=== PATIENT | male | born 1950 | race Caucasian/White ===

== ENCOUNTER 2019-09-03 16:43 | Inpatient (IN) | payer OTHER, MEDICAID ==
[~2019-09-03] VITALS: Ht 170.2 cm; Wt 74.8 kg
[2019-09-03 16:45] VITALS: BP_SYST 131
--- NOTE | 2019-09-03 16:45 | NUR ---
Patient to ER H1 to gown for evaluation. Side rails up.
--- NOTE | 2019-09-03 16:50 | NUR ---
Pt brought by BLS, pt sents from [facility] for cloudy urine in the catheter, catheter was changed today by nurse, pt afebrile, agitated, Hx of schizophrenia, skin pink and warm, cap refill <3, VSS.
--- NOTE | 2019-09-03 16:55 | NUR ---
Dr Diaz at bedside examining patient
[2019-09-03] MEDS ORDERED: NACL 0.9% 1,000 ML IV ONE (16:58)
--- NOTE | 2019-09-03 17:30 | NUR ---
Pt agitated, states does not want a gown on him, pt having visual hallucinations at this time
[2019-09-03 17:58] LABS: BASOPHILS # (AUTO) 0.1 K/uL (0.0-0.2); BASOPHILS % (AUTO) 0.8 % (0.0-2.0); EOSINOPHILS # (AUTO) 0.2 K/uL (0.0-0.4); HEMATOCRIT 39.7 % (36-54); HEMOGLOBIN 13.4 g/dL (14.0-18.0); LYMPHOCYTES # (AUTO) 1.5 K/uL (1.0-5.5); LYMPHOCYTES % (AUTO) 13.9 % (20.5-51.5); MEAN CORPUSCULAR HEMOGLOBIN 30 pg (27-31); MEAN CORPUSCULAR HGB CONC 34 % (32-36); MEAN CORPUSCULAR VOLUME 88 fL (79.0-98.0); MONOCYTES % (AUTO) 9.5 % (1.7-9.3); NEUTROPHILS # (AUTO) 7.7 K/uL (1.8-7.7); NEUTROPHILS % (AUTO) 73.8 % (40.0-70.0); PLATELET COUNT (AUTO) 274 K/uL (130-430); RED BLOOD CELL COUNT(AUTO) 4.51 MIL/uL (4.2-6.2); RED CELL DISTRIBUTION WIDTH 15.7 % (9.0-15.0); WHITE BLOOD COUNT (AUTO) 10.4 K/uL (4.8-10.8)
[2019-09-03 18:00] LABS: CALCIUM 9.1 mg/dL (8.4-11.0); CREATININE 2.38 mg/dL (0.55-1.30); POTASSIUM 4.8 mmol/L (3.5-5.1)
[2019-09-03] MEDS ORDERED: DIPHENHYDRAMINE INJ 50 MG/ML VIAL IVP ONE (18:00)
[2019-09-03] MEDS ORDERED: LORazepam 2 MG/ML VIAL IVP ONE (18:00)
--- NOTE | 2019-09-03 18:02 | NUR ---
Pt requesting something to eat
[2019-09-03 18:06] LABS: ALBUMIN 3.5 g/dL (3.4-4.8); TOTAL BILIRUBIN 0.4 mg/dL (0.0-1.0)
--- NOTE | 2019-09-03 18:28 | NUR ---
Food provided to patient, well tolerated,
[2019-09-03 18:49] LABS: BILIRUBIN,URINE NEGATIVE (NEGATIVE); BLOOD, URINE 2+ (NEGATIVE); CLARITY/URINE CLEAR (CLEAR); COLOR,URINE YELLOW (YELLOW); GLUCOSE,URINE NEGATIVE (NEGATIVE); KETONES,URINE NEGATIVE (NEGATIVE); LEUKOCYTE ESTERASE ,URINE 3+ (NEGATIVE); NITRITE, URINE POSITIVE (NEGATIVE); PROTEIN URINE 2+ (NEGATIVE); UROBILINOGEN,URINE 0.2 (0.2-1.0)
[2019-09-03 19:07] LABS: BACTERIA,URINE MANY /HPF (None Seen); MUCUS,URINE None Seen /LPF (None Seen); RBC,URINE >100 /HPF (0-3); WBC,URINE >100 /HPF (0-3)
--- NOTE | 2019-09-03 19:16 | NUR ---
Pt resting on bed, report given to Pippa OCONNOR.
[2019-09-03] MEDS ORDERED: LEVOFLOXACIN 500 MG/D5W 100 ML IV ONE (19:30)
[2019-09-03] MEDS ORDERED: ACET-2165 PO (19:35)
[2019-09-03] MEDS ORDERED: ASPI-1155 PO (19:36)
[2019-09-03] MEDS ORDERED: BENZ1TAB76 PO ×2 (19:36→20:30)
[2019-09-03] MEDS ORDERED: BISA10SU61 RC (19:37)
[2019-09-03] MEDS ORDERED: DIVA250T PO ×2 (19:38→20:30)
[2019-09-03] MEDS ORDERED: DOCU250C14 PO (19:39)
[2019-09-03] MEDS ORDERED: GLUC1VIA4 IM (19:40)
[2019-09-03] MEDS ORDERED: GUAI100S14 PO (19:40)
[2019-09-03] MEDS ORDERED: PSYL575P22 PO (19:44)
[2019-09-03] MEDS ORDERED: PSYL822P20 PO (19:44)
[2019-09-03] MEDS ORDERED: MOM PO (19:48)
[2019-09-03] MEDS ORDERED: MULT-1100 PO (19:49)
[2019-09-03] MEDS ORDERED: ANT30 PO (19:49)
[2019-09-03] MEDS ORDERED: QUET200T5 PO (19:51)
[2019-09-03] MEDS ORDERED: LEVO25TA2 PO (19:52)
[2019-09-03] MEDS ORDERED: ONDA4TAB5 PO (19:53)
--- NOTE | 2019-09-03 19:54 | NUR ---
Medication reconciliation completed with information provided by [facility]. Any prior medication reconciliation on file was reviewed and corrected.
--- NOTE | 2019-09-03 20:14 | NUR ---
Patient will be admitted to care of DR. OLVERA. Admitted to MS unit. Will go to room 113b. Belongings list completed. Summary report printed. Report will be given at bedside.
--- NOTE | 2019-09-03 20:45 | NUR ---
Pts mckeon was changed today. Mckeon site is marked for 09/03/2019. Reported from facility that mckeon was changed and that pt is combative. pt educated that mckeon needs to be changed however, pt refused. Charge nurse made aware.
--- NOTE | 2019-09-03 20:53 | NUR ---
Transfer to [place] . Licensed nurse present. IV present no signs or symptoms of infiltration.
--- NOTE | 2019-09-03 20:53 | NUR ---
ADMIT NOTE Received pt from ER to the floor with a diagnosis of UTI. Admission process initiated. patient oriented to pain management, safety and call light-teach back done.
--- NOTE | 2019-09-03 21:00 | NUR ---
TRANSFER OF CARE Report received from Clay MOORE RN. Patient received lying in bed, resting. No s/s of acute distress noted. Breathing even and unlabored. IV site patent, no signs of infiltration or infection noted. Patient has mckeon attached, secured, and draining by gravity to leg bag. Call light with patient, instructed to call for any assistance, patient verbalized understanding and demonstrated back proper use. Bed alarm on. Bed is locked and at lowest position. Will continue to monitor.
[2019-09-03] MEDS ORDERED: LORazepam 2 MG/ML VIAL IVP PRN (22:00)
--- NOTE | 2019-09-03 22:12 | NUR ---
AGITATED/IV BAG Patient is agitated at this time. PRN medication to be administered. IVF hung at this time. IV site patent. NO signs of infiltration or infection noted. Will continue to monitor and reassess.
[2019-09-03] MEDS: NACL 0.9% 1,000 ML IV SCH (22:26)
[2019-09-04] VITALS: BP_SYST 146
--- NOTE | 2019-09-04 | NUR ---
ACCUCHECK/REFUSE MCKEON Accucheck done at this time, BS at 120. No s/s of hypoglycemia noted. Skin warm and dry to touch. Patient informed that mckeon has to be replaced at this time, patient refuses at this time. Patient educated on purpose for changing MCKEON, but patient still refuses. Will continue to encourage throughout shift. Call light with patient. Bed alarm on. Will continue to monitor.
[2019-09-04] MEDS: INSULIN REGULAR, HUMAN 100 UNITS/ML, 10 ML VIAL (humuLIN R) SUBCUT PRN (00:58)
--- NOTE | 2019-09-04 02:00 | NUR ---
ROUNDS Patient in bed asleep at this time. No signs of discomfort noted. Chest rise and fall even bilaterally. IVF infusing well. Call light with patient. Bed alarm on. Will continue to monitor.
--- NOTE | 2019-09-04 04:00 | NUR ---
EMPTY FERRERA Ferrera leg bag emptied at this time, 150ml of cloudy urine note. Patient in bed resting, no signs of discomfort at this time. Call light within reach. Will continue to monitor.
--- NOTE | 2019-09-04 06:02 | NUR ---
CONSULTATION PAGED/CALLED Reason for Consultation: UTI Person Who was Notified: GAURAV Consulting Physician: SARA MEHTA Network Systems Engineer Specialty: ID Ordering Physician: DR. OLVERA
--- NOTE | 2019-09-04 06:44 | NUR ---
CLOSING NOTE Patient in bed, sitting up at this time. No s/s of acute distress noted, patient denies any pain. Breathing even and unlabored. IVF infusing well, IV site patent, no signs of infiltration or infection noted. Gonzalez attached, secured, and draining by gravity, leg bag attached to left lower extremity. Skin warm and dry to touch, no s/s of hypoglycemia noted, last accucheck at 112. All needs met throughout shift. Fall and safety precautions maintained throughout shift. Will continue to monitor until patient care is endorsed to oncoming dayshift nurse.
--- NOTE | 2019-09-04 07:15 | NUR ---
SBAR RECEIVED AT THE BEDSIDE. PATIENT SITTING ON CHAIR. BREATHING EVEN AND UNLABORED. ABDOMEN SOFT AND NON DISTENDED. HAS IV ACCESS ON THE LEFT AC #20. WITH IV FLUIDS OF NORMAL SALINE AT 50CC/HR INFUSING ON WELL.
[2019-09-04 08:20] VITALS: BP_SYST 140
--- NOTE | 2019-09-04 08:40 | NUR ---
talking by himself. alert awake x 2. no complained made so far
--- NOTE | 2019-09-04 08:41 | NUR ---
confused at times. and forgetful.
--- NOTE | 2019-09-04 08:41 | NUR ---
had breakfast good. eat 100% of food
[2019-09-04] MEDS: cefTRIAXone 1 GM in D5W 50 ML IV SCH (08:42)
[2019-09-04] MEDS ORDERED: LEVOFLOXACIN 500 MG/D5W 100 ML IV SCH (09:00)
[2019-09-04 09:05] LABS: BASOPHILS # (AUTO) 0.1 K/uL (0.0-0.2); BASOPHILS % (AUTO) 0.7 % (0.0-2.0); EOSINOPHILS # (AUTO) 0.3 K/uL (0.0-0.4); HEMATOCRIT 40.9 % (36-54); HEMOGLOBIN 13.6 g/dL (14.0-18.0); LYMPHOCYTES # (AUTO) 1.2 K/uL (1.0-5.5); LYMPHOCYTES % (AUTO) 10.8 % (20.5-51.5); MEAN CORPUSCULAR HEMOGLOBIN 30 pg (27-31); MEAN CORPUSCULAR HGB CONC 33 % (32-36); MEAN CORPUSCULAR VOLUME 89 fL (79.0-98.0); MONOCYTES # (AUTO) 0.9 K/uL (0.0-1.0); MONOCYTES % (AUTO) 8.7 % (1.7-9.3); NEUTROPHILS # (AUTO) 8.3 K/uL (1.8-7.7); NEUTROPHILS % (AUTO) 76.8 % (40.0-70.0); PLATELET COUNT (AUTO) 246 K/uL (130-430); RED BLOOD CELL COUNT(AUTO) 4.59 MIL/uL (4.2-6.2); RED CELL DISTRIBUTION WIDTH 15.7 % (9.0-15.0); WHITE BLOOD COUNT (AUTO) 10.8 K/uL (4.8-10.8)
--- NOTE | 2019-09-04 10:00 | NUR ---
ALWAYS WALKED INSIDE THE ROOM WITH FERRERA CATHETER WITH LEG BAG ON IT. REFUSED TO BE CHANGED WITH NEW FERRERA CATHETER. REFUSED TO HAVE ONE AND INFORMED ANNY OCONNOR AND TELL THE MD NOT TO HAVE FERRERA CATH INSERTION AND NO MORE.
[2019-09-04 11:32] VITALS: BP_SYST 135
--- NOTE | 2019-09-04 12:30 | NUR ---
latest bs 93mg/dl. no coverage given.
--- NOTE | 2019-09-04 12:57 | NUR ---
empty mckeon catheter at 650 cc yellow but cloudy urine.
--- NOTE | 2019-09-04 13:30 | NUR ---
DR OLVERA CAME AND SAID DISCONTINUE FERRERA CATHETER AND LATER INSERT IT. AND INFORMED THAT PATIENT WANTS TO GO TO [place] AND BE ADMITTED TO [facility], PER PATIENT SAID.
[2019-09-04 15:30] VITALS: BP_SYST 156
--- NOTE | 2019-09-04 15:30 | NUR ---
DISCONTINUE FERRERA CATHETER AND OUTPUT ADEQUATE AND DOCUMENTED.
--- NOTE | 2019-09-04 16:00 | NUR ---
IV ACCESS WAS PULLED OUT BY THE PATIENT. PLEASANTLY CONFUSED.
[2019-09-04] MEDS: NACL 0.9% 1,000 ML IV SCH (16:30)
--- NOTE | 2019-09-04 17:54 | NUR ---
OFFERED TO PUT IV ACCESS AND FERRERA CATHETER INSERTION. AND REFUSED. SAID NO.
--- NOTE | 2019-09-04 18:04 | NUR ---
HAD DINNER GOOD. NO COMPLAINED MADE, BUT REFUSES TO HAVE IV ACCESS INSERTION AND FERRERA CATHETER INSERTION.
--- NOTE | 2019-09-04 19:23 | NUR ---
sbar report endorsed to Amari OCONNOR
[2019-09-04 19:50] VITALS: BP_SYST 152
--- NOTE | 2019-09-04 19:55 | NUR ---
INITIAL NOTE AT INITIAL ASSESSMENT, PATIENT IS RESTING IN BED, STABLE, NO SIGNS OF RESPIRATORY DISTRESS. PATIENT VERBALIZES NO PAIN. PLAN OF CARE FOR THE EVENING IS COMMUNICATED WITH THE PATIENT. PATIENT IS CONFUSED BUT PLACED IN A ROOM CLOSE TO THE NURSING STATION FOR CLOSER OBSERVATION. BED IS LOCKED, ALARMED, AND AT THE LOWEST LEVEL. FALL AND SAFETY PRECAUTIONS WILL BE IN PLACE THROUGHOUT THE SHIFT.
--- NOTE | 2019-09-04 21:30 | NUR ---
PATIENT REFUSES IV PLACEMENT PATIENT IS REFUSING IV PLACEMENT DESPITE EDUCATIONAL EFFORTS. WILL CONTINUE TO ENCOURAGE THROUGHOUT THE SHIFT.
[2019-09-04] MEDS ORDERED: LORazepam 2 MG/ML VIAL IM PRN (22:30)
[2019-09-04] MEDS ORDERED: QUEtiapine FUMARATE 25 MG TABLET PO SCH (22:30)
[2019-09-04] MEDS: cloNIDine HCL 0.1 MG TABLET PO PRN (23:08)
--- NOTE | 2019-09-04 23:30 | NUR ---
NOTE PATIENT IS ASSISTED TO THE BATHROOM WITH MINIMAL ASSIST NECESSARY. HE IS REPOSITIONED BACK INTO BED FOR COMFORT, STABLE, NO SIGNS OF RESPIRATORY DISTRESS. CALL LIGHT IS WITHIN REACH. BED IS LOCKED, ALARMED, AND AT THE LOWEST LEVEL.
[2019-09-05] VITALS: BP_SYST 168
--- NOTE | 2019-09-05 01:30 | NUR ---
HYGIENE CARE & WOUND CARE NOTE HYGIENE CARE IS PROVIDED AT THIS TIME. PATIENT PROVIDED FRESH LINENS. HE IS REPOSITIONED FOR COMFORT, STABLE, NO SIGNS OF RESPIRATORY DISTRESS. CALL LIGHT IS WITHIN REACH. BED IS LOCKED, ALARMED, AND AT THE LOWEST LEVEL.
--- NOTE | 2019-09-05 03:30 | NUR ---
NOTE PATIENT IS SLEEPING, STABLE, NO SIGNS OF RESPIRATORY DISTRESS. CALL LIGHT IS WITHIN REACH. BED IS LOCKED, ALARMED, AND AT THE LOWEST LEVEL.
--- NOTE | 2019-09-05 05:00 | NUR ---
NOTE PATIENT IS RESTING IN BED, STABLE, NO SIGNS OF RESPIRATORY DISTRESS. CALL LIGHT IS WITHIN REACH. BED IS LOCKED, ALARMED, AND AT THE LOWEST LEVEL.
--- NOTE | 2019-09-05 06:00 | NUR ---
CLOSING NOTE PATIENT GOT UP 3 TIMES DURING THE SHIFT TO [facility], HE WAS OTHERWISE RESTING IN BED CALMLY. PATIENT REFUSED IV PLACEMENT THROUGHOUT THE SHIFT DESPITE EDUCATIONAL EFFORTS. BLOOD SUGAR CHECK AT THIS TIME REQUIRES NO INSULIN COVERAGE PER SSI ORDERED BY MD. AT THIS TIME, PATIENT IS RESTING IN BED, STABLE, NO SIGNS OF RESPIRATORY DISTRESS. CALL LIGHT IS WITHIN REACH. BED IS LOCKED, ALARMED, AND AT THE LOWEST LEVEL. FALL AND SAFETY PRECAUTIONS HAVE BEEN IN PLACE THROUGHOUT THE SHIFT. WILL CONTINUE TO MONITOR UNTIL SHIFT REPORT IS GIVEN AT BEDSIDE TO AM NURSE.
--- NOTE | 2019-09-05 07:15 | NUR ---
sbar report received at the bedside. patient alert awake x 2.breathing even and unlabored. abdomen soft and non distended. no iv access noted. no mckeon catheter. vital signs stable. afebrile. verbalized wants to eat breakfast. bed low position, alarmed and locked. will continue to monitor patients status. call lights within reach.
--- NOTE | 2019-09-05 08:00 | NUR ---
patient refused to have laboratory work ups.
[2019-09-05] MEDS: cefTRIAXone 1 GM in D5W 50 ML IV SCH (09:00)
[2019-09-05] MEDS: DIVALPROEX SODIUM 125 MG CAP.(DEPAKOTE SPRINKLE) PO SCH ×3 (09:15→21:00)
[2019-09-05] MEDS: QUEtiapine FUMARATE 25 MG TABLET PO SCH ×2 (09:16→21:00)
--- NOTE | 2019-09-05 09:22 | NUR ---
PATIENT TOOK SEROQUEL TABLET AND BUT NOT THE DEPAKOTE TABLET. WANTS ORANGE JUICE.
[2019-09-05 09:24] VITALS: BP_SYST 115
--- NOTE | 2019-09-05 10:00 | NUR ---
just sitting on the chair. both eyes closed. at times has urgency to go to the bathroom and voids.
--- NOTE | 2019-09-05 11:00 | NUR ---
verbalized wants to go home to [facility].
--- NOTE | 2019-09-05 11:44 | NUR ---
PATIENT REFUSED FOR BLOOD DRAWN FOR LABORATORY WORK UPS. AGAIN
[2019-09-05] MEDS: NACL 0.9% 1,000 ML IV SCH (12:30)
[2019-09-05 13:23] VITALS: BP_SYST 135
--- NOTE | 2019-09-05 13:24 | NUR ---
still refusing to have iv access and mckeon insertion. said i m not crazy and i do not want to have iv access, because i am eating good. and going to the bathroom to void.
--- NOTE | 2019-09-05 16:00 | NUR ---
wants to have coffee with creamer
[2019-09-05 17:03] VITALS: BP_SYST 130
--- NOTE | 2019-09-05 17:04 | NUR ---
went to the bathroom. assists on adls.
[2019-09-05] MEDS: INSULIN REGULAR, HUMAN 100 UNITS/ML, 10 ML VIAL (humuLIN R) SUBCUT PRN (17:45)
--- NOTE | 2019-09-05 17:55 | NUR ---
latest bs 169 mg/dl. refused to have coverage. still talking to an imaginary friend
--- NOTE | 2019-09-05 17:56 | NUR ---
dr thomas came and verify with dr nowak or pavan regarding possible d/c to [facility]
--- NOTE | 2019-09-05 18:50 | NUR ---
SEEN THE PATIENT AT THIS TIME. STILL EATING. NO COMPLAINED MADE SO FAR.
--- NOTE | 2019-09-05 19:35 | NUR ---
SPOKE TO [facility], PHONE NUMBER [phone]. REPORTED THE PATIENT WHO ELOPED/MISSING. SAID SOMEBODY WILL COME TO CHECK AND ASKED FOR MORE INFORMATION.
--- NOTE | 2019-09-05 19:51 | NUR ---
Marc Byrd spoke to the doctor.
--- NOTE | 2019-09-05 19:51 | NUR ---
SPOKE TO DR OLVERA AND SAID CALL THE POLICE WHICH WAS DONE AND CALLED.
--- NOTE | 2019-09-05 20:25 | NUR ---
INCIDENT REPORT DONE. BUT PATIENT WAS FOUND AND BROUGHT BY THE ADMINISTRATION ASSISTANT.
--- NOTE | 2019-09-05 20:35 | NUR ---
INITIAL NOTE / PATIENT FOUND PATIENT BROUGHT IN BY SECURITY AT THIS TIME TO HIS ROOM. SECURITY VERBALIZED THAT HE SPOKE TO THE POLICE WHO FOUND THE PATIENT AFTER WORKERS AT [employer] FOUND THE PATIENT IN THEIR ESTABLISHMENT. POLICE THEN PICKED UP THE PATIENT AND BROUGHT HIM TO COUNT INCLUDES THE [facility] ER. AT THIS TIME, PATIENT IS AGITATED, AND ANGRY, HE VERBALIZES "I WANT TO GO HOME!" AT THIS TIME, NO FAMILY CONTACT NUMBER IS ABLE TO BE FOUND FOR THE PATIENT, [facility] WAS PAGED FOR POSSIBLE CONTACT NUMBER RELATING TO THE PATIENT BUT THEY ALSO HAD NO KNOWN CONTACT NUMBERS FOR THE PATIENT. SECURITY IS AT BEDSIDE. PATIENT IS STABLE, NO SIGNS OF RESPIRATORY DISTRESS. PATIENT VERBALIZES NO PAIN. PLAN OF CARE FOR THE EVENING IS COMMUNICATED WITH THE PATIENT. BED IS LOCKED, ALARMED, AND AT THE LOWEST LEVEL. FALL AND SAFETY PRECAUTIONS WILL BE IN PLACE THROUGHOUT THE SHIFT. AT THIS TIME, PATIENT REMAINS ANGRY AND AGITATED, HE IS REFUSING ALL TREATMENTS INCLUDING VITAL SIGNS AND MEDICATIONS SCHEDULED. WILL CONTINUE TO OBSERVE CLOSELY THROUGHOUT THE SHIFT. CHARGE NURSE ASHWINI AND AUTO AIR CONDITIONING MECHANIC CARLIN ARE AWARE.
[2019-09-05] MEDS ORDERED: HALOPERIDOL LACTATE 5 MG/ML VIAL IM PRN (20:45)
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
--- NOTE | 2019-09-05 21:00 | NUR ---
Called exchange to page Dr. Mcgill, but she said its Dr. Aashish Au who is covering for the group.
--- NOTE | 2019-09-05 21:01 | NUR ---
COMMUNICATION WITH EXCHANGE DR. MOYER IS THE PATIENT'S PSYCHIATRIST ORDERED, AND PER EXCHANGE, DR. KEE IS CENTRAL SERVICES TECH FOR HIM. DR. KEE IS UNABLE TO BE REACHED SINCE HE IS NOT A STAFF MEMBER OF [facility] SO HE CANNOT BE REACHED FOR THIS PATIENT. WILL ENDORSE TO AM SHIFT NURSE TO TRY TO REACH DR. MOYER WHEN HE NO LONGER IS BEING COVERED BY DR. KEE. CHARGE NURSE ASHWINI AND GROUP PRODUCT MANAGER CARLIN ARE AWARE.
--- NOTE | 2019-09-05 22:50 | NUR ---
NOTE PATIENT IS SITTING UPRIGHT IN A CHAIR AT BEDSIDE, HE IS STABLE, NO SIGNS OF RESPIRATORY DISTRESS. HE REMAINS ANGRY AND AGITATED, STILL REFUSING ALL TREATMENTS.
--- NOTE | 2019-09-06 00:20 | NUR ---
NOTE PATIENT IS SLEEPING, STABLE, NO SIGNS OF RESPIRATORY DISTRESS. BED IS LOCKED, ALARMED, AND AT THE LOWEST LEVEL.
--- NOTE | 2019-09-06 02:20 | NUR ---
NOTE PATIENT IS RESTING IN BED, STABLE, NO SIGNS OF RESPIRATORY DISTRESS. CALL LIGHT IS WITHIN REACH. BED IS LOCKED, ALARMED, AND AT THE LOWEST LEVEL.
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
--- NOTE | 2019-09-06 06:02 | NUR ---
CLOSING NOTE PATIENT WAS UNCOOPERATIVE TO RECEIVE ANY INTERVENTIONS, TREATMENTS, SCHEDULED MEDICATIONS, WELL LABS ORDERS FOR THIS MORNING. AT THIS TIME, PATIENT IS RESTING IN BED, STABLE, NO SIGNS OF RESPIRATORY DISTRESS. CALL LIGHT IS WITHIN REACH. BED IS LOCKED, ALARMED, AND AT THE LOWEST LEVEL. FALL AND SAFETY PRECAUTIONS HAVE BEEN IN PLACE THROUGHOUT THE SHIFT. WILL CONTINUE TO MONITOR CLOSELY UNTIL SHIFT REPORT IS GIVEN AT BEDSIDE TO AM NURSE.
--- NOTE | 2019-09-06 08:14 | NUR ---
AM rounds: Awake, coherent, answered questions properly. Call light within reach. Bed alarm is ON.
[2019-09-06] MEDS: NACL 0.9% 1,000 ML IV SCH (08:30)
[2019-09-06] MEDS: DIVALPROEX SODIUM 125 MG CAP.(DEPAKOTE SPRINKLE) PO SCH ×3 (09:00→21:00)
[2019-09-06] MEDS: QUEtiapine FUMARATE 25 MG TABLET PO SCH ×2 (09:00→21:00)
[2019-09-06] MEDS: cefTRIAXone 1 GM in D5W 50 ML IV SCH (09:00)
--- NOTE | 2019-09-06 09:29 | NUR ---
Rounds: Sitting on the chair. Refused am meds.
--- NOTE | 2019-09-06 11:48 | NUR ---
Accucheck: Patient refused accucheck. Up on the chair, calm.
--- NOTE | 2019-09-06 11:59 | NUR ---
Nutrition Assessment (short note d/t lack of time) A-RD reviewed pt's current EMR including diet Hx, physician notes, nursing notes, pertinent labs/meds/procedures, care trends and care activity. Pt seen talking to self, sitting up in chair, w/ nursing staff at bedside. Per staff, pt has been eating well, ate 100% of breakfast. Pt has been aggressive per staff report. Difficulty in chewing or swallowing, or any N/V were denied by staff. Current diet regimen is appropriate. Pt w/ adequate weight. Ht: 5'7 Wt: 165 #/75 kg %IBW: 111 IBW: 148 #/67 kg ESTIMATED NUTRITIONAL REQUIREMENTS CALORIES/DAY: 8168-9850 kcal/day (30-35 kcal/kg CBW for COPD) PROTEIN/DAY: 45-60 gm/day (0.6-0.8 gm/kg CBW for Renal Dz predialysis) FLUID/DAY: per physician (Renal Dz) D: Altered nutrition related labs r/t endocrine dysfunction AEB elevated BG and POC BG lab values. I: Recommend continuing CCHO 2gm Na diet per MD orders. M: Monitor appetite and PO intake w/ goal of pt meeting at least 75% of estimated nutritional needs, labs trending WNL, normal GI function, skin integrity/wt maintenance. E: RD to F/U within 3-5 days CLAY FRANCO
--- NOTE | 2019-09-06 12:05 | NUR ---
[place] Conservationist Recommendation Recommend continuing CCHO 2gm Na diet per MD orders. Please see nutritional assessment for details. SALVADOR, RD
--- NOTE | 2019-09-06 15:28 | NUR ---
Psyche Rounds: Seen by Dr. Dutton. Made aware of patient's behavior last nite. Per MD, patient's behavior was due to his grave disease. To continue giving PRN med for agitation.
--- NOTE | 2019-09-06 15:34 | NUR ---
Mission Commander:met with pt. received referral for community mental health social worker RUBBER GOODS TESTER WATER met pt. who was agitated and bothered. He denied having any needs or having any type of mental illness. Pt recalls speaking to a psyc. Dr. Max and does not agree with him. Pt. does not believe he has a need for any meds. and stated he wants to leave [facility] and return to his home at [facility]. Pt. stated had been homeless for about 8 years and was good at it. He stated he just wants to return to his home. Pt. did not want any PCP closer to his home. His PCP is in [place]. RUBBER GOODS TESTER WATER will remain available as needed.
--- NOTE | 2019-09-06 16:39 | NUR ---
LABS and Renal US: Patient refused Renal US and blood draw was attempted 3x and refused .
[2019-09-06 17:00] VITALS: BP_SYST 154
[2019-09-06 17:21] VITALS: BP_SYST 154
--- NOTE | 2019-09-06 17:40 | NUR ---
DC ORDER: Received order to DC patient back to SNF. Called [facility] [phone] spoke with Linh who is questioning the discharge. Referred her to call Dr. Powers and clarify her concerns with him.
--- NOTE | 2019-09-06 18:17 | NUR ---
End of shift: Needs attended. No change in assessment. Sitting on the chair, calm at this time.
--- NOTE | 2019-09-06 18:43 | NUR ---
COMMUNICATION: Informed Dr. Powers that [facility] refused to take patient back. New order for DC plan to [facility] in am
--- NOTE | 2019-09-06 19:30 | NUR ---
initial notes: seen pt standing in front of his room. alert, awake. able to answer question. pt is upset stated he wants to get out from here. no iv site. no pain. not distress.discuss to pt plan of care and medication. pt disagree to take all his medication.pt go back to his bed. call light in reach. low bed position. safety on. bed alarm on.
[2019-09-06 19:51] VITALS: BP_SYST 158
--- NOTE | 2019-09-06 20:08 | NUR ---
pt on bed. agree to have her vital sign to be check, pt still refused to take his medication.
--- NOTE | 2019-09-06 22:13 | NUR ---
pt is resting on his side. wakes up when call by name. mo pain. no distress. stable. needs attended.call light in reach. will follow-up.
--- NOTE | 2019-09-06 22:17 | NUR ---
pt is awake, alert. watching tv. no sob, no pain. stable. airborne isolation maintained. call light in reach. will follow-up.
--- NOTE | 2019-09-07 00:02 | NUR ---
pt on bed covered with blanket talking to his self. no pain, not distress. stable. needs attended. call light in reach. safety on. will follow-up
--- NOTE | 2019-09-07 02:39 | NUR ---
sleeping, no pain. not distress. stable. needs attended. call light in reach. will follow-up.
--- NOTE | 2019-09-07 03:52 | NUR ---
sleeping on his side covered with blanket. no pain. no sob. stable. call light in reach. will follow-up.
[2019-09-07] MEDS: NACL 0.9% 1,000 ML IV SCH (04:30)
--- NOTE | 2019-09-07 05:59 | NUR ---
sleeping quietly covered with blanket, comfortable. no pain. no sob. stable. call light in reach. will follow-up.
--- NOTE | 2019-09-07 06:47 | NUR ---
closing: pt is still resting in bed, covered with blanket. no pain. no sob, not agitated the whole shift. pt stay in his room the whole shift. pt just go to bathroom to void. needs attended the whole shift. safety on. call light in reach. will give bedside report to incoming am rn.
[2019-09-07 08:50] VITALS: BP_SYST 164
[2019-09-07] MEDS: cloNIDine HCL 0.1 MG TABLET PO PRN (08:54)
--- NOTE | 2019-09-07 08:58 | NUR ---
AM rounds: Seen sitting on the edge of the bed. Clonidine 0.1 mg PO given for BP 164/111. Refused depakote and seroquel. Patient wants to be discharged. Informed him that case management is trying to find place for him. Safety precautions in place. Call light within reach.
[2019-09-07] MEDS: DIVALPROEX SODIUM 125 MG CAP.(DEPAKOTE SPRINKLE) PO SCH ×3 (09:00→21:00)
[2019-09-07] MEDS: QUEtiapine FUMARATE 25 MG TABLET PO SCH ×2 (09:00→21:00)
[2019-09-07] MEDS: CEFEPIME 1 GM in D5W 50 ML IV SCH (09:00)
--- NOTE | 2019-09-07 10:42 | NUR ---
DC Planning: YACHT HAND note: User: Amy Beth YACHT HAND Date: 09/06/19 15:34 Type: Chief Executive Or Managing Director Notes Chief Executive Or Managing Director:met with pt. received referral for social media marketing specialist YACHT HAND met pt. who was agitated and bothered. He denied having any needs or having any type of mental illness. Pt recalls speaking to a psyc. Dr. Max and does not agree with him. Pt. does not believe he has a need for any meds. and stated he wants to leave [facility] and return to his home at [facility]. Pt. stated had been homeless for about 8 years and was good at it. He stated he just wants to return to his home. Pt. did not want any PCP closer to his home. His PCP is in [place]. YACHT HAND will remain available as needed.
--- NOTE | 2019-09-07 11:30 | NUR ---
Rounds: Patient is up on the chair, calm.
--- NOTE | 2019-09-07 11:41 | NUR ---
Discharge Planning: DCP faxed pt referral to [facility] (f [phone] p [phone]) DCP to follow up. Addendum: 09/07/19 at 1655 by Elina Thao DP DCP spoke to Nasrin at [facility] (f [phone] p [phone]) declined patient for behavioral issue, patient was there in past. DCP made CM aware.
[2019-09-07 12:44] VITALS: BP_SYST 126
--- NOTE | 2019-09-07 15:08 | NUR ---
DC Planning: Per fredis Antoine: [facility] declined to accept the admission request, due to pt's psychosis status. Dr Powers made aware via phone. The MD made other recommendation to send pt to [facility], [facility] . fredis Antoine to process the request.
--- NOTE | 2019-09-07 15:45 | NUR ---
Rounds: Patient is in bed, calm at this time.
[2019-09-07 16:54] VITALS: BP_SYST 137
--- NOTE | 2019-09-07 18:38 | NUR ---
End of shift: Needs attended. Patient is calm. No change in assessment.
--- NOTE | 2019-09-07 19:30 | NUR ---
Opening notes Pt awake, resting quietly in bed, no s/s distress noted. No IV access. Bed low, locked in position. Pt near nurses station to be monitored closely.
--- NOTE | 2019-09-07 21:50 | NUR ---
Pt awake, resting in bed, no distress noted. Pt talking to himself and refused meds and vitals signs to be taken at this time. To monitor.
[2019-09-08] VITALS (7 sets, daily range): BP systolic 133–168
[2019-09-08] MEDS: NACL 0.9% 1,000 ML IV SCH ×2 (00:30→19:45)
--- NOTE | 2019-09-08 01:35 | NUR ---
Rounds Pt asleep, no s/s distress noted. Call light within reach. Bed low, locked, side rails up x2. To monitor.
--- NOTE | 2019-09-08 05:25 | NUR ---
Pt awake, no s/s distress noted. Pt refused BP check and blood sugar check despite education. Pt states "I thought I was gonna be released today." Coffee given to pt per pt request. Call light within reach. Bed low, locked, siderails up x2. To endorse to am nurse.
--- NOTE | 2019-09-08 05:50 | NUR ---
Pt refused lab draw this AM.
--- NOTE | 2019-09-08 07:23 | NUR ---
Opening Note received bedside SBAR report from overnight babysitter RN, patient resting in bed, respirations even and unlabored on room air, no acute distress noted, room close to nurses station, educated patient on use of call light and asked to call for assistance, patient verbalized understanding, call light in reach, educated patient on use of bed alarm for patient safety, patient refusing bed alarm, bed in low and locked position.
[2019-09-08] MEDS: DIVALPROEX SODIUM 125 MG CAP.(DEPAKOTE SPRINKLE) PO SCH ×3 (07:58→20:20)
[2019-09-08] MEDS: CEFEPIME 1 GM in D5W 50 ML IV SCH (07:59)
[2019-09-08] MEDS: QUEtiapine FUMARATE 25 MG TABLET PO SCH ×2 (07:59→20:20)
--- NOTE | 2019-09-08 08:15 | NUR ---
Refusing Medications educated patient on use and side effects of medications, patient refusing all medications, educated patient on purpose and procedure for IV catheter placement, patient refusing IV catheter placement, patient sitting up in bed eating breakfast.
--- NOTE | 2019-09-08 10:03 | NUR ---
RN Rounds patient resting in bed, respirations even and unlabored on room air, patient denies any pain, no acute distress noted.
[2019-09-08] MEDS: INSULIN REGULAR, HUMAN 100 UNITS/ML, 10 ML VIAL (humuLIN R) SUBCUT PRN ×2 (11:31→17:40)
--- NOTE | 2019-09-08 12:14 | NUR ---
RN Rounds patient sitting up in bed eating lunch, patient denies any pain or nausea, no acute distress noted.
--- NOTE | 2019-09-08 14:10 | NUR ---
RN Rounds patient resting in bed, respirations even and unlabored, patient denies any pain, no acute distress noted.
--- NOTE | 2019-09-08 15:03 | NUR ---
Paged Physician Paged Dr. Powers to inform him that per case planner Amber patient has a bed available at [facility], awaiting call back.
[2019-09-08] MEDS: cloNIDine HCL 0.1 MG TABLET PO PRN ×2 (15:23→19:46)
--- NOTE | 2019-09-08 15:34 | NUR ---
DC PLANNING: CM CONTACTED [facility], SPOKE WITH MJ MONTERROSO), WHO CONFIRMED PATIENT IS ACCEPTED BACK AND ROOM NUMBER IS 122.
--- NOTE | 2019-09-08 16:01 | NUR ---
RN Rounds patient resting in bed, patient requesting cup of coffee, provided patient with cup of coffee, offered patient hygiene items or assistance with hygiene, patient refusing.
--- NOTE | 2019-09-08 16:20 | NUR ---
D/C Planning: DCP faxed pt referral to [facility] ([phone] p [phone]) Rm 122. Transportation needs to be arranged with [facility] [phone], since they give a 4 hour window and can arrive within those 4 hours at anytime, putting on will call is not a option. Nurse made aware, also a DC order is needed. Patient packet taken to nurse station.
--- NOTE | 2019-09-08 17:20 | NUR ---
Clothes/Linen patient agreeable to have linen changed and change clothes, linen changed, clean clothes provided.
--- NOTE | 2019-09-08 18:05 | NUR ---
RN Rounds patient sitting up in bed eating dinner, tolerating well, patient denies any nausea, no acute distress noted.
--- NOTE | 2019-09-08 18:17 | NUR ---
paged paged for Dr Powers, dialed . s/w [facility].
--- NOTE | 2019-09-08 18:30 | NUR ---
Spoke with Physician spoke with Dr. Powers, new orders received, verified with read back.
[2019-09-08] MEDS ORDERED: CEFE1FRO IV (18:34)
[2019-09-08] MEDS ORDERED: MAXPM1 IV (18:37)
--- NOTE | 2019-09-08 19:21 | NUR ---
Closing Note bedside SBAR report given to receiving RN, patient resting in bed, no acute distress noted, patient denies any pain, room close to nurses station, endorsed discharge orders to receiving RN, educated patient on use of bed alarm and asked to call for assistance, patient verbalized understanding, call light in reach, bed in low and locked position, bed alarm on, care endorsed to [employer] shift supervisor RN.
--- NOTE | 2019-09-08 19:44 | NUR ---
Transportation Service Requested called [facility], dialed for a BLS transport to [facility] s/w [place], stated that ETA will be between 1 to 3 hours. Addendum: 09/08/19 at 1951 by Khang Proctor [place]/ Reference number: [id number]
--- NOTE | 2019-09-08 19:49 | NUR ---
RN ROUNDS Patient awake, lying in bed, denies any pain or discomfort at this time, blood pressure elevated, clonidine 0.1 mg tab gvien for high blood pressure, will recheck blood pressure shortly. Bed alarm on, safety measures in place.
--- NOTE | 2019-09-08 20:06 | NUR ---
paged paged for Dr Powers, dialed . s/w [facility].
--- NOTE | 2019-09-08 20:10 | NUR ---
DISCHARGE PAGED DR. OLVERA, CALLED BACK AND UPDATED HIM ON PATIENT'S BLOOD PRESSURE, NEW MEDICATION ORDERS GIVEN FOR CLONIDINE 01.MG 1 TAB EXTRA DOSE. BLOOD PRESSURE AT THIS TIME IS 148/100.
[2019-09-08] MEDS ORDERED: cloNIDine HCL 0.1 MG TABLET PO ONE (20:15)
--- NOTE | 2019-09-08 21:30 | NUR ---
DISCHARGE DR. OLVERA MADE ROUNDS, UPDATED HIM ON RECENT BLOOD PRESSURE, NEW ORDER TO DISCHARGE PATIENT ALFREDA, RECENT BLOOD PRESSURE 139/77, PULSE 80, PATIENT DENIES ANY PAIN OR DISCOMFORT, OTHER VITALS STABLE. REPORT GIVEN TO MEDIC PERSONNEL, ALL BELONGINGS SENT WITH PATIENT. PATIENT STABLE UPON TRANSFER. Addendum: 09/08/19 at 2215 by Jyothi Palacios RN REPORT GIVEN TO DILSHAD BARKER AT [facility] AND [facility], ALL QUESTIONS ANSWERED, PATIENT STABLE TO BED TRANSFERRED.
== END 2019-09-08 21:33 | DRG 871 ==
LOC: SED 16:43 → SMU 19:55
PROVIDERS: ADMIT Internal Medicine; ATTEND Internal Medicine
DX: A41.9 Sepsis, unspecified organism (principal); G93.41 Metabolic encephalopathy; N12 Tubulo-interstitial nephritis, not specified as acute or chronic; N17.9 Acute kidney failure, unspecified; F25.9 Schizoaffective disorder, unspecified; I25.10 Atherosclerotic heart disease of native coronary artery without angina pectoris; I48.91 Unspecified atrial fibrillation; J44.9 Chronic obstructive pulmonary disease, unspecified; N31.9 Neuromuscular dysfunction of bladder, unspecified; N40.0 Benign prostatic hyperplasia without lower urinary tract symptoms; Z79.899 Other long term (current) drug therapy; Z79.82 Long term (current) use of aspirin
CPT/HCPCS: 36415; 71045; 80053; 81000-TC; 82962; 83605; 83880; 85025; 87040-TC; 87081; 87086; 87186-TC; 93005; 96361; 96365; 96375; 99285; J0692; J0696; J1200; J1815; J1956; J2060; J7030; J7060